=== PATIENT | female | born 1955 | race Native Hawaiian/Other Pacific Islander ===

== ENCOUNTER 2016-11-12 08:56 | Emergency (ER) | payer BC ==
[2016-11-12] MEDS ORDERED: MORPHINE SULFATE 4 MG/ML SYRINGE IV STA (09:12)
[2016-11-12] MEDS ORDERED: ONDANSETRON 4 MG/2 ML VIAL IVP STA (09:12)
[2016-11-12] MEDS ORDERED: SODIUM CHLORIDE 0.9% 1,000 ML IV STA (09:12)
--- NOTE | 2016-11-12 09:17 | ED ---
Abdominal Pain HPI - General Chief Complaint: Abdominal Pain Stated Complaint: ABDOMINAL PAIN Time Seen by Provider: 11/12/16 09:08 Source: patient, RN notes reviewed Mode of arrival: ambulatory Limitations: no limitations - History of Present Illness Initial Comments: 60-year-old female presents emergency Department chief complaint lower abdominal pain. Patient states pain started yesterday has not resolved. Patient states that his lower abdomen and suprapubic region. Patient states that she had nausea vomiting yesterday still nauseated today. Patient was seen at [facility] a urinalysis which showed hematuria. She has no history kidney stones. States the pain is slightly radiating to her side were primary just lower abdomen. Patient has had prior total hysterectomy, appendectomy and cholecystectomy. Patient had a history of uterine cancer. Patient denies any fever, chills, diarrhea or constipation. She does complain of mild urgency to urinate but no dysuria. - Related Data Previous Rx's Medication Instructions Recorded Ciprofloxacin HCl [Cipro] 500 mg PO Q12HR #20 tablet 11/12/16 Hydrocodone/Acetaminophen [[place] 1 tab PO Q6HR PRN #20 tab 11/12/16 5-325] Ondansetron Odt [Zofran Odt] 4 mg PO Q8HR PRN #10 tab 11/12/16 metroNIDAZOLE [Flagyl] 500 mg PO TID #30 tab 11/12/16 Allergies Allergy/AdvReac Type Severity Reaction Status Date / Time No Known Allergies Allergy Verified 11/12/16 09:04 Review of Systems ROS Statement: Those systems with pertinent positive or pertinent negative responses have been documented in the HPI. ROS Other: All systems not noted in ROS Statement are negative. Past Medical History Past Medical History: Diabetes Mellitus, Hyperlipidemia, Hypertension, Thyroid Disorder History of Any Multi-Drug Resistant Organisms: None Reported Past Surgical History: Cholecystectomy, Hysterectomy Additional Past Surgical History / Comment(s): uterine cancer Past Psychological History: No Psychological Hx Reported Smoking Status: Never smoker Past Alcohol Use History: None Reported Past Drug Use History: None Reported General Exam Limitations: no limitations General appearance: alert, in no apparent distress ENT exam: Present: normal exam, mucous membranes moist Neck exam: Present: normal inspection, full ROM. Absent: tenderness, meningismus, lymphadenopathy Respiratory exam: Present: normal lung sounds bilaterally. Absent: respiratory distress, wheezes, rales, rhonchi, stridor Cardiovascular Exam: Present: regular rate, normal rhythm, normal heart sounds. Absent: systolic murmur, diastolic murmur, rubs, gallop, clicks GI/Abdominal exam: Present: soft, tenderness (Moderate lower abdominal tenderness), normal bowel sounds. Absent: distended, guarding, rebound, rigid Back exam: Absent: CVA tenderness (R), CVA tenderness (L) Neurological exam: Present: alert, oriented X3, CN II-XII intact Skin exam: Present: warm, dry, intact, normal color. Absent: rash Course Vital Signs 11/12/16 11/12/16 09:01 10:11 Temperature 98.5 F Pulse Rate 80 89 Respiratory 18 17 Rate Blood Pressure 172/92 134/71 O2 Sat by Pulse 100 100 Oximetry Medical Decision Making - Medical Decision Making 60-year-old female presented emergency department for lower abdominal pain. Patient CT does show diverticulitis of the sigmoid colon with no evidence of perforation or abscess. Patient states she does feel improved at this time. Patient's labwork reveals mild leukocytosis 15. Patient was offered admission to the hospital states that she would rather try oral antibiotics at home. We did discuss return parameters wrist versus benefits. Patient will follow-up on Monday with her primary care physician. - Lab Data Result diagrams: 11/12/16 09:30 11/12/16 09:30 Lab Results 11/12/16 11/12/16 11/12/16 Range/Units 09:30 09:30 10:08 WBC 15.0 H (3.8-10.6) k/uL RBC 5.02 (3.80-5.40) m/uL Hgb 14.7 (11.4-16.0) gm/dL Hct 44.2 (34.0-46.0) % MCV 88.1 (80.0-100.0) fL MCH 29.2 (25.0-35.0) pg MCHC 33.2 (31.0-37.0) g/dL RDW 13.2 (11.5-15.5) % Plt Count 311 (150-450) k/uL Neutrophils % 78 % Lymphocytes % 14 % Monocytes % 4 % Eosinophils % 2 % Basophils % 1 % Neutrophils # 11.7 H (1.3-7.7) k/uL Lymphocytes # 2.1 (1.0-4.8) k/uL Monocytes # 0.6 (0-1.0) k/uL Eosinophils # 0.3 (0-0.7) k/uL Basophils # 0.1 (0-0.2) k/uL Sodium 138 (137-145) mmol/L Potassium 4.9 (3.5-5.1) mmol/L Chloride 103 (98-107) mmol/L Carbon Dioxide 23 (22-30) mmol/L Anion Gap 12 mmol/L BUN 13 (7-17) mg/dL Creatinine 0.62 (0.52-1.04) mg/dL Est GFR (MDRD) Af Amer >60 (>60 ml/min/1.73 sqM) Est GFR (MDRD) Non-Af >60 (>60 ml/min/1.73 sqM) Glucose 131 H (74-99) mg/dL Calcium 9.5 (8.4-10.2) mg/dL Total Bilirubin 0.7 (0.2-1.3) mg/dL AST 22 (14-36) U/L ALT 33 (9-52) U/L Alkaline Phosphatase 87 (38-126) U/L Total Protein 7.9 (6.3-8.2) g/dL Albumin 4.4 (3.5-5.0) g/dL Amylase 36 (30-110) U/L Lipase 76 (23-300) U/L Urine Color Yellow Urine Appearance Clear (Clear) Urine pH 5.5 (5.0-8.0) Ur Specific [place] 1.012 (1.001-1.035) Urine Protein Trace H (Negative) Urine Glucose (UA) 3+ H (Negative) Urine Ketones Trace H (Negative) Urine Blood Trace H (Negative) Urine Nitrite Negative (Negative) Urine Bilirubin Negative (Negative) Urine Urobilinogen <2.0 (<2.0) mg/dL Ur Leukocyte Esterase Negative (Negative) Urine RBC <1 (0-5) /hpf Urine WBC 1 (0-5) /hpf Ur Squamous Epith Cells <1 (0-4) /hpf Disposition Clinical Impression: Acute diverticulitis Disposition: HOME SELF-CARE Condition: Stable Instructions: Diverticulitis (ED), Diverticulitis Diet (ED) Additional Instructions: Please return to the Emergency Department if symptoms worsen or any other concerns. Prescriptions: Ciprofloxacin HCl [Cipro] 500 mg PO Q12HR #20 tablet Hydrocodone/Acetaminophen [[place] 5-325] 1 tab PO Q6HR PRN #20 tab PRN Reason: Pain metroNIDAZOLE [Flagyl] 500 mg PO TID #30 tab Ondansetron Odt [Zofran Odt] 4 mg PO Q8HR PRN #10 tab PRN Reason: Nausea Referrals: Denia Monson MD [Primary Care Provider] - 1-2 days Time of Disposition: 10:42
[2016-11-12 09:43] LABS: Basophils # (A) 0.1 k/uL (0-0.2); Basophils % (A) 1 %; CH 28.9; Eosinophils # (A) 0.3 k/uL (0-0.7); Eosinophils % (A) 2 %; HCT 44.2 % (34.0-46.0); HDW 2.44; HGB 14.7 gm/dL (11.4-16.0); Luc # (Auto) 0.26; Luc % (Auto) 2; Lymphocytes # (A) 2.1 k/uL (1.0-4.8); Lymphocytes % (A) 14 %; MCH 29.2 pg (25.0-35.0); MCHC 33.2 g/dL (31.0-37.0); MCV 88.1 fL (80.0-100.0); Mean Platelet Volume 6.6; Monocytes # (A) 0.6 k/uL (0-1.0); Monocytes % (A) 4 %; Neutrophils # (A) 11.7 k/uL (1.3-7.7); Neutrophils % (A) 78 %; RBC 5.02 m/uL (3.80-5.40); RDW 13.2 % (11.5-15.5); WBC (Perox) 14.79
[2016-11-12 09:53] LABS: ALT 33 U/L (9-52); AST 22 U/L (14-36); Alkaline Phosphatase 87 U/L (38-126); Amylase 36 U/L (30-110); Anion Gap 12 mmol/L; Blood Urea Nitrogen 13 mg/dL (7-17); Calcium 9.5 mg/dL (8.4-10.2); Carbon Dioxide 23 mmol/L (22-30); Chloride 103 mmol/L (98-107); Glucose 131 mg/dL (74-99); Non-African American GFR(MDRD) >60 (>60 ml/min/1.73 sqM); Potassium 4.9 mmol/L (3.5-5.1); Sodium 138 mmol/L (137-145); Total Bilirubin 0.7 mg/dL (0.2-1.3); Total Protein 7.9 g/dL (6.3-8.2)
[2016-11-12 10:12] VITALS: BP 134/71; PULSE 89; RESP 17
--- NOTE | 2016-11-12 10:25 | CT ---
EXAMINATION TYPE: CT abdomen pelvis wo con DATE OF EXAM: 11/12/2016 COMPARISON: None. HISTORY: pelvic pain with hematuria CT DLP: 610.4 mGycm Automated exposure control for dose reduction was used. FINDINGS: There is mild dependent atelectasis in the dependent portions of the lungs. There is no ple ural or pericardial fluid. The heart is not enlarged. Within the abdomen, the gallbladder is been removed. The liver is prominent measuring 19 cm. The live r is fatty infiltrated. The spleen is normal. Both adrenal glands are normal. There is a simple appearing 4.3 cm cyst involving the upper pole of the left kidney. There are parape lvic cysts on the right. Limited views of the pancreas are unremarkable. There is no significant retroperitoneal, iliac or inguinal adenopathy. The uterus and ovaries are not visualized. The bladder is unremarkable. There is extensive diverticular change throughout the sigmoid colon. There is pericolonic inflammatio n in the mid sigmoid. There is no drainable abscess. There is no definite perforation. The appendix i s normal. Small bowel loops are of normal caliber. There is no free fluid and no free air. There is some sclerosis of the left sacroiliac joint. There is degenerative disc disease and mild fac et arthropathy as well as minimal hypertrophic spondylosis within the dorsal spine. IMPRESSION: 1. DIVERTICULITIS. 2. HEPATOMEGALY AND FATTY INFILTRATION OF THE LIVER. #3 SIMPLE APPEARING LEFT RENAL CYST. 3. DEGENERATIVE CHANGE IN THE SPINE AND RIGHT SI JOINT.
[2016-11-12 10:27] LABS: Appearance,Urine Clear (Clear); Bilirubin,Urine Negative (Negative); Glucose,Urine (UA) 3+ (Negative); Ketones,Urine Trace (Negative); Leukocyte Esterase,Urine Negative (Negative); Nitrite,Urine Negative (Negative); PH, Urine 5.5 (5.0-8.0); Particle Count 932; Protein,Urine Trace (Negative); RBC,Urine <1 /hpf (0-5); Specific Gravity,Urine 1.012 (1.001-1.035); Squamous Epithelial Cell,Urine <1 /hpf (0-4); UA Billing (MACRO vs. MICRO) MICRO; Urobilinogen,Urine <2.0 mg/dL (<2.0); WBC,Urine 1 /hpf (0-5)
[2016-11-12] MEDS ORDERED: CIPROFLOXACIN HCL 500 MG TAB PO STA (10:42)
[2016-11-12] MEDS ORDERED: metroNIDAZOLE 500 MG TAB PO STA (10:42)
[2016-11-12 10:59] VITALS: TEMP 98.6
== END 2016-11-12 10:58 | disposition home or self-care (01) ==
LOC: EC 08:56
DX: K57.32 Diverticulitis of large intestine without perforation or abscess without bleeding (principal); R11.2 Nausea with vomiting, unspecified; Z90.49 Acquired absence of other specified parts of digestive tract
CPT/HCPCS: 99284; 96374; 96375; 96361; 36415; 80053; 82150; 83690; 85025; 81001; 74176; J2270; J2405

== ENCOUNTER → 2018-08-31 | Outpatient (CLI) | payer BC ==
--- NOTE | 2018-09-04 11:24 | MM ---
Reason for exam: screening (asymptomatic). Last mammogram was performed 2 years and 8 months ago. History: Patient is postmenopausal and has history of endometrial cancer at age 51. Family history of breast cancer in paternal cousin. Physical Findings: A clinical breast exam by your physician is recommended on an annual basis and results should be correlated with mammographic findings. MG Screening Mammo w CAD Bilateral CC and MLO view(s) were taken. Prior study comparison: January 01, 2016, bilateral MG screening mammo w CAD. October 17, 2012, bilateral digital screening mammo w/CAD. There are scattered fibroglandular densities. There are benign appearing round calcifications bilaterally. There is no discrete abnormality. ASSESSMENT: Benign, BI-RAD 2 RECOMMENDATION: Routine screening mammogram of both breasts in 1 year.
== END | disposition home or self-care (01) ==
LOC: RADMAMWWP 09:53
PROVIDERS: ATTEND Internal Medicine
DX: Z12.31 Encounter for screening mammogram for malignant neoplasm of breast (principal)
CPT/HCPCS: 77067

== ENCOUNTER 2019-06-22 13:37 | Inpatient (IN) | payer BC, OTHER ==
[2019-06-22] MEDS ORDERED: ASPIRIN 81 MG PO STA (14:01)
--- NOTE | 2019-06-22 14:12 | ED ---
Chest Pain HPI - General Chief Complaint: Chest Pain Stated Complaint: Chest pain Time Seen by Provider: 06/22/19 13:50 Source: EMS Mode of arrival: EMS Limitations: no limitations - History of Present Illness Initial Comments: The patient is a 63-year-old female past history of hypertension, hyperlipidemia and diabetes who presents to the emergency room with reported chest pain. She reports that the pain started last night while she was grocery shopping. States that she was pushing a cart when she had sudden poking sensation in her chest. She graded it as an 8 out of 10. Denies any provocative factors. No associated nausea, vomiting or diaphoresis. No history of previous cardiac disease. States that she went home with the hope that the symptoms would go away. When she woke this morning she still had pain in her chest and therefore went to the [place] urgent care. Staff at the facility noted that she was in SVT with a rate of 187. They called EMS who performed vagal maneuver and converted the patient. She does arrive and state that her symptoms are completely gone at this time. She does report that she has had intermittent chest pain over the past several months. Her primary care referred her to go see Dr. Adkins as she does have significant risk factors for cardiac disease and has a large family history of cardiac disease. States her sister just had open-heart surgery and her brother has heart disease. Reports that she has not gone to see him as her chest pain was improving. Denies ripping or tearing sensation to her back. Denies cough or hemoptysis. No abdominal pain. Denies any numbness, tingling or weakness in her tremors. No syncope or presyncope. There are no other alleviating, precipitating or modifying factors - Related Data Home Medications Medication Instructions Recorded Confirmed Aspirin EC [Ecotrin Low Dose] 81 mg PO DAILY 06/22/19 06/22/19 Dapagliflozin Propanediol [Farxiga] 5 mg PO DAILY 06/22/19 06/22/19 Krill Oil 500 mg PO DAILY 06/22/19 06/22/19 Levothyroxine Sodium [Synthroid] 50 mcg PO DAILY 06/22/19 06/22/19 Lisinopril [Zestril] 10 mg PO DAILY 06/22/19 06/22/19 SUMAtriptan SUCCINATE [Imitrex] 100 mg PO DAILY PRN 06/22/19 06/22/19 Simvastatin [Zocor] 40 mg PO HS 06/22/19 06/22/19 sitaGLIPtin PHOS/metFORMIN HCL 1 tab PO BID 06/22/19 06/22/19 [Janumet 50-1,000 mg Tablet] Previous Rx's Medication Instructions Recorded Metoprolol Tartrate [Lopressor] 25 mg PO DAILY #30 tab 06/24/19 Allergies Allergy/AdvReac Type Severity Reaction Status Date / Time No Known Allergies Allergy Verified 06/22/19 14:56 Review of Systems ROS Statement: Those systems with pertinent positive or pertinent negative responses have been documented in the HPI. ROS Other: All systems not noted in ROS Statement are negative. EKG Findings - EKG Comments: EKG Findings:: EKG demonstrates a normal sinus rhythm with ventricular rate of 93. ME interval 162. QRS 98. QTC of 465. Q waves in leads 3 and [address]VF. No acute ST segment elevations or depressions Past Medical History Past Medical History: Diabetes Mellitus, Hyperlipidemia, Hypertension, Thyroid Disorder History of Any Multi-Drug Resistant Organisms: None Reported Past Surgical History: Cholecystectomy, Hysterectomy Additional Past Surgical History / Comment(s): uterine cancer Past Psychological History: No Psychological Hx Reported Smoking Status: Never smoker Past Alcohol Use History: None Reported Past Drug Use History: None Reported - Past Family History Mother Family Medical History: Coronary Artery Disease (CAD), Deep Vein Thrombosis (DVT) General Exam Limitations: no limitations General appearance: alert, in no apparent distress Head exam: Present: atraumatic, normocephalic, normal inspection Eye exam: Present: normal appearance, PERRL, EOMI. Absent: scleral icterus, conjunctival injection, periorbital swelling ENT exam: Present: normal exam, mucous membranes moist Neck exam: Present: normal inspection. Absent: tenderness, meningismus, lymphadenopathy Respiratory exam: Present: normal lung sounds bilaterally. Absent: respiratory distress, wheezes, rales, rhonchi, stridor Cardiovascular Exam: Present: regular rate, normal rhythm, normal heart sounds. Absent: systolic murmur, diastolic murmur, rubs, gallop, clicks GI/Abdominal exam: Present: soft, normal bowel sounds. Absent: distended, tenderness, guarding, rebound, rigid Extremities exam: Present: normal inspection, full ROM, normal capillary refill. Absent: tenderness, pedal edema, joint swelling, calf tenderness Back exam: Present: normal inspection Neurological exam: Present: alert, oriented X3, CN II-XII intact Psychiatric exam: Present: normal affect, normal mood Skin exam: Present: warm, dry, intact, normal color. 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 A thorough history and physical exam was performed. The patient has a 12-lead EKG performed which demonstrates normal sinus rhythm with Q waves in inferior leads. I recommended laboratory studies. I continued cardiac monitoring. Laboratory studies were conducted. D-dimer is 0.62 which is adjusted and age appropriate. CMP shows a creatinine of 0.48. Troponin is negative. Chest x-ray was performed which demonstrates no acute cardio pulmonary process. I discussed the results with the patient. I did recommend hospitalization for the patient's new onset SVT as well as her multiple comorbid conditions which puts her at a higher risk for coronary disease. The patient did agree to this. I did discuss the case with Dr. Mcdaniel who accepted admission for the patient. The patient was transferred to the floor in stable condition Disposition Clinical Impression: Chest pain, SVT (supraventricular tachycardia) Disposition: ADMITTED IP TO THIS HOSP Condition: Stable Is patient prescribed a controlled substance at d/c from ED?: No Decision to Admit Reason: Admit from EC Decision Date: 06/22/19 Decision Time: 14:58
[2019-06-22 14:30] LABS: Basophils # (A) 0.1 k/uL (0-0.2); Basophils % (A) 1 %; Eosinophils # (A) 0.3 k/uL (0-0.7); Eosinophils % (A) 3 %; HCT 41.8 % (34.0-46.0); HGB 13.7 gm/dL (11.4-16.0); Lymphocytes # (A) 2.7 k/uL (1.0-4.8); Lymphocytes % (A) 32 %; MCH 28.6 pg (25.0-35.0); MCHC 32.8 g/dL (31.0-37.0); MCV 87.1 fL (80.0-100.0); Mean Platelet Volume 7.6; Monocytes # (A) 0.4 k/uL (0-1.0); Monocytes % (A) 5 %; Neutrophils # (A) 4.9 k/uL (1.3-7.7); Neutrophils % (A) 58 %; Platelet Count 306 k/uL (150-450); RBC 4.79 m/uL (3.80-5.40); RDW 12.9 % (11.5-15.5); WBC 8.6 k/uL (3.8-10.6)
[2019-06-22 14:32] LABS: ALT 43 U/L (4-34); AST 57 U/L (14-36); African American GFR (CKD) >90 (>60 ml/min/1.73 sqM); Albumin 4.3 g/dL (3.5-5.0); Alkaline Phosphatase 70 U/L (38-126); Anion Gap 8 mmol/L; Blood Urea Nitrogen 12 mg/dL (7-17); Calcium 9.5 mg/dL (8.4-10.2); Carbon Dioxide 25 mmol/L (22-30); Chloride 106 mmol/L (98-107); Glucose 156 mg/dL (74-99); Magnesium 1.9 mg/dL (1.6-2.3); Non-African American GFR(CKD) >90 (>60 ml/min/1.73 sqM); Potassium 4.1 mmol/L (3.5-5.1); Sodium 139 mmol/L (137-145); Total Bilirubin 0.3 mg/dL (0.2-1.3); Total Protein 7.7 g/dL (6.3-8.2)
[2019-06-22 14:39] LABS: Partial Thromboplastin Time 22.4 sec (22.0-30.0); Prothrombin Time 10.3 sec (9.0-12.0)
--- NOTE | 2019-06-22 14:41 | XR ---
EXAMINATION TYPE: XR chest 2V DATE OF EXAM: 06/22/2019 COMPARISON: 12/13/2009 HISTORY: Chest pain TECHNIQUE: Frontal and lateral views of the chest are obtained. FINDINGS: There is no focal air space opacity, pleural effusion, or pneumothorax seen. The cardiac silhouette size is within normal limits. The osseous structures are intact. IMPRESSION: No acute cardiopulmonary process.
[2019-06-22 14:43] LABS: D-Dimer 0.62 mg/L FEU (<0.60)
[2019-06-22] MEDS ORDERED: NALOXONE 0.4 MG/ML 1 ML VIAL IV PRN (14:59)
[2019-06-22 15:22] LABS: Glucose,Whole Blood 139 mg/dL (75-99)
[2019-06-22] MEDS: INSULIN ASPART (NovoLOG) 100 UNIT/ML VIAL SQ SCH ×2 (17:44→20:36)
[2019-06-22] MEDS: ATORVASTATIN 20 MG TAB PO SCH (20:18)
[2019-06-22 20:33] LABS: Glucose,Whole Blood 145 mg/dL (75-99)
[2019-06-22] MEDS ORDERED: HEPARIN SODIUM,PORCINE 5,000 UNIT/ML 1 ML VIAL IV ONE (21:22)
[2019-06-22] MEDS: HEPARIN SOD,PORK IN 0.45% NACL 25,000 UNIT in 0.45% NACL 1 250ML.BAG IV SCH (21:47)
--- NOTE | 2019-06-22 23:07 | P.HPIM ---
History of Present Illness H&P Date: 06/22/19 Chief Complaint: chest pain patient is a 63-year-old female with a known history of hypertension, diabetes type [id number], hypothyroidism, hyperlipidemia and history of uterine cancercame to ER with complaints of chest pain. Patient states that her chest pain startedwhile she was grocery shopping. Pain is mainly in the left retrosternaland radiating to theright shoulder. Lasted about half an hour Stabbing like sensation associated with dizzinessand lightheadedness. No nausea vomiting or sweating. Patient went homewith the hope thatsymptoms would go away. When she woke up in the morning she still had chest pain and went [facility] urgent care facility. Patient was found to be in SVTand advised her to go to ER. EMS performed vagal maneuver and converted to sinus rhythm. Currently heart rate is controlled. denied any complaints of shortness of breath. No abdominal pain. Denied any recent illnesses or sick contacts. no syncope She does report that she has had intermittent chest pain over the past several months. Her primary care referred her to go see Dr. Adkins as she does have significant risk factors for cardiac disease and has a large family history of cardiac disease. States her sister just had open-heart surgery and her brother has heart disease. Reports that she has not gone to see him as her chest pain was improving. EKG showednormal sinus rhythm. troponin, 0.012,0.164 chest x-ray showed no acute cardiopulmonary process. D-dimer level is 0.62 Review of Systems Constitutional: Patient denies any fever or chills . No generalized weakness or weight loss. Abdomen: Patient denied nausea vomiting and diarrhea and abdominal pain. Cardiovascular: Patient complaints of chest pain . No short of breath no palpitations.oes have headache and dizziness. No leg swelling. Respiratory: patient denied any cough is from production. No shortness of breath Neurologic: Patient denied any numbness or tingling headache. Musculoskeletal: Patient denies any complaints of joint swelling or deformity. Skin: Negative Psychiatric: Negative Endocrine: No heat or cold intolerance. No recent weight gain. Genitourinary: No dysuria or hematuria. All other 14 point ROS negative except the above Past Medical History Past Medical History: Diabetes Mellitus, Hyperlipidemia, Hypertension, Thyroid Disorder History of Any Multi-Drug Resistant Organisms: None Reported Past Surgical History: Cholecystectomy, Hysterectomy Additional Past Surgical History / Comment(s): uterine cancer Past Psychological History: No Psychological Hx Reported Smoking Status: Never smoker Past Alcohol Use History: None Reported Past Drug Use History: None Reported - Past Family History Mother Family Medical History: Coronary Artery Disease (CAD), Deep Vein Thrombosis (DVT) Medications and Allergies Home Medications Medication Instructions Recorded Confirmed Type Aspirin EC [Ecotrin Low Dose] 81 mg PO DAILY 06/22/19 06/22/19 History Dapagliflozin Propanediol [Farxiga] 5 mg PO DAILY 06/22/19 06/22/19 History Krill Oil 500 mg PO DAILY 06/22/19 06/22/19 History Levothyroxine Sodium [Synthroid] 50 mcg PO DAILY 06/22/19 06/22/19 History Lisinopril [Zestril] 10 mg PO DAILY 06/22/19 06/22/19 History SUMAtriptan SUCCINATE [Imitrex] 100 mg PO DAILY PRN 06/22/19 06/22/19 History Simvastatin [Zocor] 40 mg PO HS 06/22/19 06/22/19 History sitaGLIPtin PHOS/metFORMIN HCL 1 tab PO BID 06/22/19 06/22/19 History [Janumet 50-1,000 mg Tablet] Allergies Allergy/AdvReac Type Severity Reaction Status Date / Time No Known Allergies Allergy Verified 06/22/19 14:56 Physical Exam Vitals: Vital Signs Temp Pulse Pulse Resp BP BP Pulse Ox 06/22/19 20:19 97.5 F L 78 16 119/77 98 06/22/19 17:24 97.8 F 73 16 122/67 97 06/22/19 17:04 85 18 109/68 98 06/22/19 15:00 96 18 110/65 98 06/22/19 14:00 98 18 119/78 96 06/22/19 13:54 97 06/22/19 13:50 98.8 F 101 H 18 119/78 98 06/22/19 13:40 97 17 119/78 97 Intake and Output 06/22/19 06/22/19 06/22/19 06:59 14:59 22:59 Other: Voiding Method Toilet Weight 70.307 kg 70.307 kg PHYSICAL EXAMINATION: Patient is lying in the bed comfortably, no acute distress, awake alert and oriented.. HEENT: Normocephalic. Neck is supple. Pupils reactive. Nostrils clear. Oral cavity is moist. Ears reveal no drainage. Neck reveals no JVD, carotid bruits, or thyromegaly. CHEST EXAMINATION: Trachea is central. Symmetrical expansion. Lung romero clear to auscultation and percussion. CARDIAC: Normal S1, S2 with no gallops. No murmurs ABDOMEN: Soft. Bowel sounds normal. No organomegaly. No abdominal bruits. Extremities: reveal no edema. No clubbing or cyanosis Neurologically awake, alert, oriented x3 with well-coordinated movements. No focal deficits noted Skin: No rash or skin lesions. Psychiatric: Coperative. Nonsuicidal Musculoskeletal: No joint swelling or deformity. Normal range of motion. Results CBC & Chem 7: 06/22/19 14:07 06/22/19 14:07 Labs: Abnormal Lab Results - Last 24 Hours (Table) 06/22/19 06/22/19 06/22/19 Range/Units 14:07 14:07 15:20 D-Dimer 0.62 H (<0.60) mg/L FEU Creatinine 0.48 L (0.52-1.04) mg/dL Glucose 156 H (74-99) mg/dL POC Glucose (mg/dL) 139 H (75-99) mg/dL AST 57 H (14-36) U/L ALT 43 H (4-34) U/L Troponin I (0.000-0.034) ng/mL 06/22/19 06/22/19 Range/Units 19:46 20:32 D-Dimer (<0.60) mg/L FEU Creatinine (0.52-1.04) mg/dL Glucose (74-99) mg/dL POC Glucose (mg/dL) 145 H (75-99) mg/dL AST (14-36) U/L ALT (4-34) U/L Troponin I 0.164 H* (0.000-0.034) ng/mL Thrombosis Risk Factor Assmnt - DVT/VTE Prophylaxis DVT/VTE Prophylaxis: Pharmacologic Prophylaxis ordered - Choose All That Apply Other Risk Factors: Yes Each Risk Factor Represents 2 Points: Age 61-74 years Thrombosis Risk Factor Assessment Total Risk Factor Score: 2 Thrombosis Risk Factor Assessment Level: Low Risk Assessment and Plan Assessment: acute non-ST elevated MIwith elevated troponin level. chest pain SVT status post vagal manual. Converted to sinus rhythm now. Significant family history of coronary artery disease Diabetes type [id number] Hypertension Hyperlipidemia hypothyroidism History of uterine cancer plan: Patient will be continued ontelemetry monitoring. Started on heparin drip. Continue with serial EKG and troponins. Cardiology was consulted.continue with aspirin. follow up closely and further recommendations based on the clinical course. Time with Patient: Greater than 30
[2019-06-23 03:44] LABS: Basophils # (A) 0.1 k/uL (0-0.2); Basophils % (A) 1 %; Eosinophils # (A) 0.4 k/uL (0-0.7); Eosinophils % (A) 5 %; HCT 38.9 % (34.0-46.0); HGB 12.7 gm/dL (11.4-16.0); Lymphocytes # (A) 3.9 k/uL (1.0-4.8); Lymphocytes % (A) 50 %; MCH 28.7 pg (25.0-35.0); MCHC 32.7 g/dL (31.0-37.0); MCV 87.7 fL (80.0-100.0); Mean Platelet Volume 8.3; Monocytes # (A) 0.3 k/uL (0-1.0); Monocytes % (A) 4 %; Neutrophils % (A) 38 %; Platelet Count 291 k/uL (150-450); RBC 4.44 m/uL (3.80-5.40); RDW 13.2 % (11.5-15.5); WBC 7.8 k/uL (3.8-10.6)
[2019-06-23 03:52] LABS: African American GFR (CKD) >90 (>60 ml/min/1.73 sqM); Anion Gap 6 mmol/L; Blood Urea Nitrogen 12 mg/dL (7-17); Calcium 9.2 mg/dL (8.4-10.2); Carbon Dioxide 28 mmol/L (22-30); Chloride 104 mmol/L (98-107); Glucose 146 mg/dL (74-99); Non-African American GFR(CKD) >90 (>60 ml/min/1.73 sqM); Potassium 4.2 mmol/L (3.5-5.1); Sodium 138 mmol/L (137-145)
[2019-06-23 06:21] LABS: Glucose,Whole Blood 166 mg/dL (75-99)
[2019-06-23] MEDS: LEVOTHYROXINE 50 MCG TAB PO SCH (06:21)
[2019-06-23] MEDS: INSULIN ASPART (NovoLOG) 100 UNIT/ML VIAL SQ SCH ×4 (06:23→21:14)
[2019-06-23] MEDS: ASPIRIN 81 MG PO SCH (08:44)
[2019-06-23] MEDS: LISINOPRIL 10 MG TAB PO SCH (08:44)
[2019-06-23] MEDS: HEPARIN SODIUM,PORCINE 5,000 UNIT/ML 1 ML VIAL IV PRN ×2 (09:51→16:39)
--- NOTE | 2019-06-23 09:52 | P.CRDCN ---
History of Present Illness Consult date: 06/23/19 Requesting physician: Rob Mcdaniel Reason for Consult (text): SVT Consult reason: chest pain Chief complaint: Chest pain History of present illness: This is a pleasant 63-year-old female patient with history of hypertension, diabetes, hyperlipidemia, nonsmoker, strong family history of premature coronary artery disease in her brother who with myocardial infarction. She states that she was in the store yesterday pushing a cart when she developed chest disc omfort which she described as a poking sensation, she also felt her heart racing fast, she states that her pain was 9 out of 10 on a pain scale. She denies any associated nausea vomiting or diaphoresis, no shortness of breath. Patient states that she went home hoping the symptoms would go away, when she woke up in the morning she still had symptoms in her chest, went to [place] urgent care. It was noticed there that the patient was in SVT with a heart rate of 180, EMS was called who performed vagal maneuver, patient converted to normal sinus rhythm and has remained in a normal sinus rhythm at this time. Patient denies seeing a muffler tender in the office, she was recommended by her primary care to set up an appointment in the office. Her chest x-ray on presentation here did not reveal any acute cardiopulmonary process. EKG this morning shows a normal sinus rhythm, no acute changes. Blood pressure 128/70 with a heart rate in the 70s, 96% on room air. White blood cell count 7.8, hemoglobin 12.7, platelet count 291. D-dimer 0.6. Sodium 138, potassium 4.2, BUN 12, creatinine 0.4. AST 57, ALT 43, initial troponin 0.012, subsequent troponin 0.164 and 0.062. TSH, 2.5 this morning. At the time of my examination this morning, patient is quite comfortable, she denies any chest discomfort, no palpitations and her breathing is stable. Past Medical History Past Medical History: Diabetes Mellitus, Hyperlipidemia, Hypertension, Thyroid Disorder History of Any Multi-Drug Resistant Organisms: None Reported Past Surgical History: Cholecystectomy, Hysterectomy Additional Past Surgical History / Comment(s): uterine cancer Past Psychological History: No Psychological Hx Reported Smoking Status: Never smoker Past Alcohol Use History: None Reported Past Drug Use History: None Reported - Past Family History Mother Family Medical History: Coronary Artery Disease (CAD), Deep Vein Thrombosis (DVT) Medications and Allergies Home Medications Medication Instructions Recorded Confirmed Type Aspirin EC [Ecotrin Low Dose] 81 mg PO DAILY 06/22/19 06/22/19 History Dapagliflozin Propanediol [Farxiga] 5 mg PO DAILY 06/22/19 06/22/19 History Krill Oil 500 mg PO DAILY 06/22/19 06/22/19 History Levothyroxine Sodium [Synthroid] 50 mcg PO DAILY 06/22/19 06/22/19 History Lisinopril [Zestril] 10 mg PO DAILY 06/22/19 06/22/19 History SUMAtriptan SUCCINATE [Imitrex] 100 mg PO DAILY PRN 06/22/19 06/22/19 History Simvastatin [Zocor] 40 mg PO HS 06/22/19 06/22/19 History sitaGLIPtin PHOS/metFORMIN HCL 1 tab PO BID 06/22/19 06/22/19 History [Janumet 50-1,000 mg Tablet] Allergies Allergy/AdvReac Type Severity Reaction Status Date / Time No Known Allergies Allergy Verified 06/22/19 14:56 Physical Exam Vitals: Vital Signs Temp Pulse Pulse Resp BP BP Pulse Ox 06/23/19 04:54 97.8 F 74 16 128/77 96 06/23/19 00:00 87 16 131/73 98 06/22/19 20:19 97.5 F L 78 16 119/77 98 06/22/19 17:24 97.8 F 73 16 122/67 97 06/22/19 17:04 85 18 109/68 98 06/22/19 15:00 96 18 110/65 98 06/22/19 14:00 98 18 119/78 96 06/22/19 13:54 97 06/22/19 13:50 98.8 F 101 H 18 119/78 98 06/22/19 13:40 97 17 119/78 97 Intake and Output 06/22/19 06/23/19 06/23/19 22:59 06:59 14:59 Output Total 3 Balance -3 Output: Urine 3 Other: Voiding Method Toilet # Voids 1 Weight 70.307 kg 83.6 kg PHYSICAL EXAMINATION: GENERAL: 63-year-old female in no acute distress at the time of my examination HEENT: Head is atraumatic, normocephalic. Pupils equal, round. Sclera anicteric. Conjunctiva are clear. Mucous membranes of the mouth are moist. Neck is supple. There is no elevated jugular venous pressure no carotid bruit is heard. HEART EXAMINATION: Heart S1, S2 normal. No murmur or gallop heard. CHEST EXAMINATION: Lungs are clear to auscultation and precussion. No chest wall tenderness is noted on palpation or with deep breathing. ABDOMEN: Soft, nontender. Bowel sounds are heard. No organomegaly noted. EXTREMITIES: 2+ peripheral pulses with no evidence of peripheral edema and no calf tenderness noted. NEUROLOGIC patient is awake, alert and oriented 3 . . Results 06/23/19 03:26 06/23/19 03:17 Cardiac Enzymes 06/22/19 06/22/19 06/22/19 Range/Units 14:07 14:07 19:46 AST 57 H (14-36) U/L Troponin I <0.012 0.164 H* (0.000-0.034) ng/mL 06/23/19 Range/Units 03:17 AST (14-36) U/L Troponin I 0.062 H* (0.000-0.034) ng/mL Coagulation 06/22/19 06/23/19 06/23/19 Range/Units 14:07 03:17 09:03 PT 10.3 (9.0-12.0) sec APTT 22.4 31.2 H 30.0 (22.0-30.0) sec CBC 06/22/19 06/23/19 Range/Units 14:07 03:26 WBC 8.6 7.8 (3.8-10.6) k/uL RBC 4.79 4.44 (3.80-5.40) m/uL Hgb 13.7 12.7 (11.4-16.0) gm/dL Hct 41.8 38.9 (34.0-46.0) % Plt Count 306 291 (150-450) k/uL Comprehensive Metabolic Panel 06/22/19 06/23/19 Range/Units 14:07 03:17 Sodium 139 138 (137-145) mmol/L Potassium 4.1 4.2 (3.5-5.1) mmol/L Chloride 106 104 (98-107) mmol/L Carbon Dioxide 25 28 (22-30) mmol/L BUN 12 12 (7-17) mg/dL Creatinine 0.48 L 0.48 L (0.52-1.04) mg/dL Glucose 156 H 146 H (74-99) mg/dL Calcium 9.5 9.2 (8.4-10.2) mg/dL AST 57 H (14-36) U/L ALT 43 H (4-34) U/L Alkaline Phosphatase 70 (38-126) U/L Total Protein 7.7 (6.3-8.2) g/dL Albumin 4.3 (3.5-5.0) g/dL Current Medications Generic Name Dose Route Start Last Admin Trade Name Freq PRN Reason Stop Dose Admin Aspirin 81 mg 06/23/19 09:00 06/23/19 08:44 Aspirin PO 81 mg DAILY GUILLERMINA Administration Atorvastatin Calcium 20 mg 06/22/19 21:00 06/22/19 20:18 Lipitor PO 20 mg HS GUILLERMINA Administration Heparin Sodium (Porcine) 0 unit 06/22/19 21:22 Heparin IV PER PROTOCOL PRN Low PTT Protocol Heparin Sodium/Sodium Chloride 250 mls @ 8.437 mls/hr 06/22/19 21:30 06/22/19 21:47 25,000 unit/ Sodium Chloride IV 12 units/kg/hr .Q24H GUILLERMINA 8.437 mls/hr Administration Protocol 12 UNITS/KG/HR Insulin Aspart 0 unit 06/22/19 17:30 06/23/19 06:23 Novolog SQ Not Given A[facility]S [facility] Protocol Levothyroxine Sodium 50 mcg 06/23/19 06:30 06/23/19 06:21 Synthroid PO 50 mcg 0630 GUILLERMINA Administration Lisinopril 10 mg 06/23/19 09:00 06/23/19 08:44 Zestril PO 10 mg DAILY GUILLERMINA Administration Metoprolol Tartrate 25 mg 06/23/19 09:30 Lopressor PO DAILY GUILLERMINA Naloxone HCl 0.2 mg 06/22/19 14:59 Narcan IV Q2M PRN Opioid Reversal Intake and Output 06/22/19 06/23/19 06/23/19 22:59 06:59 14:59 Output Total 3 Balance -3 Output: Urine 3 Other: Voiding Method Toilet # Voids 1 Weight 70.307 kg 83.6 kg 06/23/19 03:26 06/23/19 03:17 EKG Interpretations (text) Initial EKG via EMS showed a supraventricular tachycardia, this morning the patient's EKG shows a normal sinus rhythm. Assessment and Plan Plan: Assessment and plan #1 chest discomfort with some atypical features for acute coronary syndrome, could be secondary to SVT. Troponins 0.01, 0.16, 0.06. #2 supraventricular tachycardia, converted to normal sinus rhythm by vagal #3 increased caffeine intake recently #4 diabetes #5 hypertension #6 hyperlipidemia #7 family history of premature coronary artery disease Plan We will obtain an echocardiogram with Doppler study. We will also start the patient on Lopressor, patient's abnormality in troponin could be secondary to supraventricular tachycardia, cannot completely rule out acute coronary syndrome. Patient has been recommended to undergo cardiac catheterization, the risks and the benefits were explained to the patient in detail. This will be performed tomorrow. Further recommendations will be based on those findings and patient's clinical course. DNP note has been reviewed, I agree with a documented findings and plan of care. Patient was seen and examined.
[2019-06-23] MEDS ORDERED: ATORVASTATIN 80 MG TAB PO STA (09:53)
[2019-06-23] MEDS ORDERED: ALPRAZolam 0.25 MG TAB PO PRN (09:53)
[2019-06-23] MEDS ORDERED: SODIUM CHLORIDE 0.9% 1,000 ML in EMPTY BAG 1 BAG IV ONE (09:53)
[2019-06-23] MEDS ORDERED: ASPIRIN 325 MG TAB PO STA (09:53)
[2019-06-23] MEDS ORDERED: ALPRAZolam 0.5 MG TAB PO PRN (09:53)
[2019-06-23] MEDS ORDERED: NITROGLYCERIN SL TABS 0.4 MG TAB SUBLINGUAL PRN (09:53)
[2019-06-23] MEDS: METOPROLOL TARTRATE 25 MG TAB PO SCH (09:55)
[2019-06-23 11:48] LABS: Glucose,Whole Blood 176 mg/dL (75-99)
[2019-06-23 16:54] LABS: Glucose,Whole Blood 172 mg/dL (75-99)
[2019-06-23 17:15] VITALS: RESP 16
[2019-06-23 20:28] LABS: Glucose,Whole Blood 164 mg/dL (75-99)
[2019-06-23] MEDS: ATORVASTATIN 20 MG TAB PO SCH (21:14)
[2019-06-23] MEDS: HEPARIN SOD,PORK IN 0.45% NACL 25,000 UNIT in 0.45% NACL 1 250ML.BAG IV SCH (21:15)
--- NOTE | 2019-06-23 22:53 | P.PN ---
Subjective Progress Note Date: 06/23/19 Principal diagnosis: Supraventricular tachycardia Chest pressure secondary to above patient is a 63-year-old female with a known history of hypertension, diabetes type [id number], hypothyroidism, hyperlipidemia and history of uterine cancercame to ER with complaints of chest pain. Patient states that her chest pain startedwhile she was grocery shopping. Pain is mainly in the left retro[place]ern[place] radiating to theright shoulder. Lasted about half an hour Stabbing like sensation associated with dizzinessand lightheadedness. No nausea vomiting or sweating. Patient went homewith the hope thatsymptoms would go away. When she woke up in the morning she still had chest pain and went tot urgent care facility. Patient was found to be in SVTand advised her to go to ER. EMS performed vagal maneuver and converted to sinus rhythm. Currently heart rate is controlled. denied any complaints of shortness of breath. No abdominal pain. Denied any recent illnesses or sick contacts. no syncope She does report that she has had intermittent chest pain over the past several months. Her primary care referred her to go see Dr. Adkins as she does have significant risk factors for cardiac disease and has a large family history of cardiac disease. States her sister just had open-heart surgery and her brother has heart disease. Reports that she has not gone to see him as her chest pain was improving. EKG showednormal sinus rhythm. troponin, 0.012,0.164 chest x-ray showed no acute cardiopulmonary process. D-dimer level is 0.62 06/23/2019 Patient denied any complaints of chest pain overnight. No complaints of shortness of breath. Troponin level came down to 0.062. Troponin elevation likely due to SVT. Due to history of multiple risk factors, cardiology is planning for catheterization tomorrow. Patient is being converted on aspirin. Added metoprolol and lisinopril. Cardiology is on board. Current medications reviewed. Objective - Vital Signs Vital signs: Vital Signs Temp 98.1 F 06/23/19: Pulse 71 06/23/19 21:26 Resp 16 06/23/19 21:26 BP 134/73 06/23/19 21:26 Pulse Ox 98 06/23/19 21:26 Intake & Output 06/23/19 06/23/19 06/24/19 06:59 18:59 06:59 Intake Total 1523.836 54.78 Output Total 3 Balance -3 1523.836 54.78 Weight 83.6 kg Intake: Intake, IV Titration 173.836 54.78 Amount Heparin Sod,Pork in 0.45% 173.836 54.78 NaCl 25,000 unit In 0.45 % NaCl 1 250ml.bag @ 12 UNITS/KG/HR 8.437 mls/hr IV .Q24H [facility] Rx#: [id number] Oral 1350 Output: Urine 3 Other: Voiding Method Toilet Toilet # Voids 1 3 1 - Exam PHYSICAL EXAMINATION: Patient is lying in the bed comfortably, no acute distress, awake alert and oriented.. HEENT: Normocephalic. Neck is supple. Pupils reactive. Nostrils clear. Oral cavity is moist. Ears reveal no drainage. Neck reveals no JVD, carotid bruits, or thyromegaly. CHEST EXAMINATION: Trachea is central. Symmetrical expansion. Lung romero clear to auscultation and percussion. CARDIAC: Normal S1, S2 with no gallops. No murmurs ABDOMEN: Soft. Bowel sounds normal. No organomegaly. No abdominal bruits. Extremities: reveal no edema. No clubbing or cyanosis Neurologically awake, alert, oriented x3 with well-coordinated movements. No focal deficits noted Skin: No rash or skin lesions. Psychiatric: Coperative. Nonsuicidal Musculoskeletal: No joint swelling or deformity. Normal range of motion. - Labs CBC & Chem 7: 06/23/19 03:26 06/23/19 03:17 Labs: Abnormal Lab Results - Last 24 Hours (Table) 06/23/19 06/23/19 06/23/19 Range/Units 03:17 03:17 03:17 APTT 31.2 H (22.0-30.0) sec Creatinine 0.48 L (0.52-1.04) mg/dL Glucose 146 H (74-99) mg/dL POC Glucose (mg/dL) (75-99) mg/dL Troponin I 0.062 H* (0.000-0.034) ng/mL 06/23/19 06/23/19 06/23/19 Range/Units 06:19 11:46 16:00 APTT 39.2 H (22.0-30.0) sec Creatinine (0.52-1.04) mg/dL Glucose (74-99) mg/dL POC Glucose (mg/dL) 166 H 176 H (75-99) mg/dL Troponin I (0.000-0.034) ng/mL 06/23/19 06/23/19 Range/Units 16:53 20:26 APTT (22.0-30.0) sec Creatinine (0.52-1.04) mg/dL Glucose (74-99) mg/dL POC Glucose (mg/dL) 172 H 164 H (75-99) mg/dL Troponin I (0.000-0.034) ng/mL Assessment and Plan Assessment: elevated troponin level. Likely due to SVT. Possible acute non-ST elevated MA chest pain SVT status post vagal manual. Converted to sinus rhythm now. Significant family history of coronary artery disease Diabetes type [id number] Hypertension Hyperlipidemia hypothyroidism History of uterine cancer plan: Patient will be continued ontelemetry monitoring. Started on heparin drip. Continue with serial EKG and troponins. Cardiology was consulted.continue with aspirin. Added metoprolol. Cardiology is planning for catheterization tomorrow. follow up closely and further recommendations based on the clinical course. Time with Patient: Greater than 30
[2019-06-24 05:25] VITALS: PULSE 74
[2019-06-24] MEDS ORDERED: ATORVASTATIN 80 MG TAB PO STA (05:59)
[2019-06-24] MEDS ORDERED: ASPIRIN 325 MG TAB PO STA (05:59)
[2019-06-24] MEDS: ASPIRIN 81 MG PO SCH (06:00)
[2019-06-24] MEDS: METOPROLOL TARTRATE 25 MG TAB PO SCH (06:09)
[2019-06-24] MEDS: LEVOTHYROXINE 50 MCG TAB PO SCH (06:09)
[2019-06-24] MEDS: LISINOPRIL 10 MG TAB PO SCH (06:09)
[2019-06-24 06:20] LABS: Glucose,Whole Blood 193 mg/dL (75-99)
[2019-06-24] MEDS: INSULIN ASPART (NovoLOG) 100 UNIT/ML VIAL SQ SCH ×3 (06:43→18:32)
[2019-06-24 06:58] LABS: Basophils # (A) 0.1 k/uL (0-0.2); Basophils % (A) 2 %; Eosinophils # (A) 0.4 k/uL (0-0.7); Eosinophils % (A) 4 %; HCT 43.2 % (34.0-46.0); HGB 13.4 gm/dL (11.4-16.0); Lymphocytes # (A) 4.2 k/uL (1.0-4.8); Lymphocytes % (A) 46 %; MCH 28.7 pg (25.0-35.0); MCHC 31.1 g/dL (31.0-37.0); MCV 92.1 fL (80.0-100.0); Monocytes # (A) 0.4 k/uL (0-1.0); Monocytes % (A) 4 %; Neutrophils # (A) 3.9 k/uL (1.3-7.7); Neutrophils % (A) 43 %; Platelet Count 316 k/uL (150-450); RBC 4.69 m/uL (3.80-5.40); RDW 13.1 % (11.5-15.5); WBC 9.2 k/uL (3.8-10.6)
[2019-06-24 07:12] LABS: African American GFR (CKD) >90 (>60 ml/min/1.73 sqM); Anion Gap 15 mmol/L; Blood Urea Nitrogen 11 mg/dL (7-17); Calcium 9.1 mg/dL (8.4-10.2); Carbon Dioxide 15 mmol/L (22-30); Chloride 107 mmol/L (98-107); Glucose 178 mg/dL (74-99); Non-African American GFR(CKD) >90 (>60 ml/min/1.73 sqM); Sodium 137 mmol/L (137-145)
[2019-06-24 07:13] LABS: Potassium 4.7 mmol/L (3.5-5.1)
--- NOTE | 2019-06-24 10:30 | ECHOF ---
Referral Reason:chest pain MEASUREMENTS -------- HEIGHT: 172.7 cm WEIGHT: 81.6 kg BP: 114/68 RVIDd: 2.8 cm (< 3.3) IVSd: 1.3 cm (0.6 - 1.1) LVIDd: 4.3 cm (3.9 - 5.3) LVPWd: 1.0 cm (0.6 - 1.1) IVSs: 1.7 cm LVIDs: 3.0 cm LVPWs: 1.4 cm LAESV Index (A-L): 23.58 ml/m Ao Diam: 3.0 cm (2.0 - 3.7) AV Cusp: 1.9 cm (1.5 - 2.6) LA Diam: 3.9 cm (2.7 - 3.8) MV EXCURSION: 13.536 mm (> 18.000) MV EF SLOPE: 58 mm/s (70 - 150) EPSS: 0.3 cm MV E Gerardo: 0.57 m/s MV DecT: 219 ms MV A Gerardo: 0.79 m/s MV E/A Ratio: 0.72 RAP: 5.00 mmHg RVSP: 27.32 mmHg FINDINGS -------- Sinus rhythm. This was a technically good study. The left ventricular size is normal. There is mild concentric left ventricular hypertrophy. Overa ll left ventricular systolic function is normal with, an EF between 55 - 60 %. The diastolic fillin g pattern is normal for the age of the patient 8.32. The right ventricle is normal in size. The left atrial size is normal. Normal LA size by volume 22+/-6 ml/m2. The right atrial size is normal. There is mild aortic valve sclerosis. There is no evidence of aortic regurgitation. Mild mitral annular calcification present. Mild mitral regurgitation is present. Mild tricuspid regurgitation present. Right ventricular systolic pressure is normal at < 35 mmHg. There is no evidence of pulmonary hypertension. There is no pulmonic regurgitation present. There is no pericardial effusion. CONCLUSIONS -------- 1. Sinus rhythm. 2. This was a technically good study. 3. The left ventricular size is normal. 4. There is mild concentric left ventricular hypertrophy. 5. Overall left ventricular systolic function is normal with, an EF between 55 - 60 %. 6. The diastolic filling pattern is normal for the age of the patient 8.32 7. The right ventricle is normal in size. 8. The left atrial size is normal. 9. Normal LA size by volume 22+/-6 ml/m2. 10. The right atrial size is normal. 11. There is mild aortic valve sclerosis. 12. Mild mitral annular calcification present. 13. Mild mitral regurgitation is present. 14. Mild tricuspid regurgitation present. 15. Right ventricular systolic pressure is normal at < 35 mmHg. 16. There is no evidence of pulmonary hypertension. 17. There is no pulmonic regurgitation present. 18. There is no pericardial effusion. DIE CUTTER OPERATOR: Maryjane Mendoza RDCS
[2019-06-24] MEDS ORDERED: VERAPAMIL 2.5 MG/ML 2 ML AMP ONE (10:43)
[2019-06-24] MEDS ORDERED: LIDOCAINE 1% INJ 10MG/ML (20 ML MDV) ONE (10:43)
[2019-06-24] MEDS ORDERED: SODIUM CHLORIDE 0.9% 1,000 ML IV ONE (11:00)
[2019-06-24] MEDS ORDERED: MIDAZOLAM 2 MG/2 ML VIAL IVP ONE ×2 (11:22→11:28)
[2019-06-24] MEDS ORDERED: LIDOCAINE 1% INJ 10MG/ML (20 ML MDV) SQ ONE (11:25)
[2019-06-24] MEDS ORDERED: VERAPAMIL SYRINGE (5 MG/10 ML) INTRAARTER ONE ×2 (11:27→11:40)
[2019-06-24] MEDS ORDERED: HEPARIN SODIUM 1,000 UN/ML (10ML VL) IV ONE ×2 (11:31)
[2019-06-24] MEDS ORDERED: IOPAMIDOL-370 100ML BTL INJ ONE (11:40)
[2019-06-24] MEDS ORDERED: SODIUM CHLORIDE 0.9% 1,000 ML IV SCH (12:00)
[2019-06-24 12:10] LABS: Glucose,Whole Blood 155 mg/dL (75-99)
--- NOTE | 2019-06-24 12:22 | CC ---
CARDIAC CATHETERIZATION REPORT DATE OF SERVICE: 06/24/2019 PROCEDURE: Left heart catheterization and coronary angiography. PERFORMED BY: Dr. Peggy Adkins. Moderate conscious sedation time was 18 minutes. Patient was administered Versed. All her oxygen saturation, VS and EKG were monitored closely. CLINICAL INFORMATION: Mrs. Leslie Ho is a 63-year-old lady admitted to the hospital with episode of chest pain strongly suggestive of angina. EN route with EMS, she had an episode of SVT at a heart rate of 150 beats per minute with symptoms of chest pain, had a vasovagal minute converted to sinus rhythm and did not have recurrence. Her troponin was very equivocal. She remained in sinus rhythm, but she has underlying diabetes, hypertension, hyperlipidemia, and has been on medications in this regard. She was advised coronary angiography after evaluation by Dr. Yecenia Cavanaugh. In view of her unstable angina and significant risk factors. Risks, benefits, options, rationale were explained. I proceeded to perform procedure this morning. PROCEDURE NOTE: Under local anesthesia and strict aseptic precautions, a 6-[place] introducer was placed in the right radial artery. Using a JL3.5 and JR4.0 catheters I performed coronary angiography. The same right Moises catheter was used to check LV pressures. LV gram was not performed. The sheath was taken out and TR band applied as per protocol. The saturation in the fingers in the right hand was 94%. LV-gram was not performed. Patient will be discharged later on today. The results of the cardiac cath, which revealed no significant CAD and normal filling pressures without gradient were explained to the patient and I also made a phone call to her daughter. CARDIAC CATHETERIZATION FINDINGS: The left ventricular end-diastolic pressure was 14 mmHg without any gradient across the aortic valve. CORONARY ANGIOGRAPHY FINDINGS: The right coronary artery large dominant vessel, has minor irregularities no significant disease, distally bifurcates into PDA and PLV, both of them have mild diffuse disease but no significant stenosis. Overall, the super dominant RCA had no significant disease. It is a large caliber, large distribution vessel. LEFT MAIN CORONARY ARTERY: It is a long patent, disease-free vessel that bifurcates into LAD and circumflex. Left main itself is free of significant disease. LEFT ANTERIOR DESCENDING CORONARY ARTERY: This is a good caliber vessel, extends along the anterior wall, gives off septal and diagonal branches, runs all the way to the apex, supplies a sizable amount of myocardium. In the midportion there is a 35% plaque at the origin of the diagonal branch. LAD is relatively disease free. LEFT POSTERIOR CIRCUMFLEX CORONARY ARTERY: Technically a nondominant vessel, gives off an obtuse marginal branch which is very high obtuse marginal, almost looks like a ramus, runs in the diagonal distribution, has minor irregularities, no significant disease. Then the circumflex runs in the AV groove and gives off a second obtuse marginal that is small in caliber and distribution. There is about a 35% plaque in the circumflex after the first obtuse marginal which is a larger vessel. The groove branch and the second OM are small in caliber and distribution without significant disease. Left ventriculogram was not performed. FINAL IMPRESSION: This patient has a right dominant system, 35% plaque in the mid LAD as well as in the mid circumflex after the origin of the first obtuse marginal branch. RCA is dominant and disease-free. Filling pressures are normal. No gradient across aortic valve. RECOMMENDATIONS: Findings were discussed with the patient and spoke to her daughter. Advised aggressive medical therapy with risk factor modification, but no intervention from a percutaneous standpoint. I will discharge the patient later on today if she remains stable. She is advised to drink plenty of water for the next 24 hours and I will see her in the office this Monday at 9:15 am. Discharge instructions were given. ISAI / MARIA ELENA: [id number] /
[2019-06-24 16:58] VITALS: BP 110/59; TEMP 97.9
[2019-06-24 17:51] LABS: Glucose,Whole Blood 180 mg/dL (75-99)
== END 2019-06-24 19:15 | disposition home or self-care (01) | DRG 281 ==
LOC: EC 13:37 → 3SCARD 14:59
PROVIDERS: ADMIT Internal Medicine; ATTEND Internal Medicine
PROC: B2111ZZ Fluoroscopy of Multiple Coronary Arteries using Low Osmolar Contrast (ICD-10-PCS; principal; 2019-06-24 11:00)
PROC: 4A023N7 Measurement of Cardiac Sampling and Pressure, Left Heart, Percutaneous Approach (ICD-10-PCS; principal; 2019-06-24 11:00)
DX: I21.4 Non-ST elevation (NSTEMI) myocardial infarction (principal); I47.1 Supraventricular tachycardia; E03.9 Hypothyroidism, unspecified; E11.9 Type 2 diabetes mellitus without complications; E78.5 Hyperlipidemia, unspecified; I10 Essential (primary) hypertension; Z79.4 Long term (current) use of insulin; Z79.82 Long term (current) use of aspirin; Z79.890 Hormone replacement therapy; Z79.899 Other long term (current) drug therapy; Z82.49 Family history of ischemic heart disease and other diseases of the circulatory system; Z83.3 Family history of diabetes mellitus; Z85.42 Personal history of malignant neoplasm of other parts of uterus; Z90.710 Acquired absence of both cervix and uterus
CPT/HCPCS: 36415; 71046; 80048; 80053; 83735; 84443; 84484; 85025; 85379; 85610; 85730; 93005; 93306; 93458; 99285

== ENCOUNTER → 2020-02-05 | Outpatient (CLI) | payer BC, OTHER ==
[2020-02-05 20:32] LABS: Chol/HDL Ratio 3.91; LDL Cholesterol,Calculated 96.2 mg/dL (0.0-131.0); VLDL Calculation 28.8 mg/dL (5.00-40.00)
== END | disposition home or self-care (01) ==
LOC: LABWHC1 10:35
PROVIDERS: ATTEND Internal Medicine Interventional Cardiology
DX: E78.5 Hyperlipidemia, unspecified (principal); E11.9 Type 2 diabetes mellitus without complications; I25.10 Atherosclerotic heart disease of native coronary artery without angina pectoris
CPT/HCPCS: 36415; 80061; 82550; 84450; 84460

== ENCOUNTER → 2020-06-12 | Outpatient (CLI) | payer BC, OTHER ==
--- NOTE | 2020-06-16 10:39 | MM ---
Reason for exam: screening (asymptomatic). Last mammogram was performed 1 year and 9 months ago. History: Patient is postmenopausal and has history of endometrial cancer at age 51. Family history of breast cancer in paternal cousin. Physical Findings: A clinical breast exam by your physician is recommended on an annual basis and results should be correlated with mammographic findings. MG Screening Mammo w CAD Bilateral CC and MLO view(s) were taken. Prior study comparison: January 01, 2016, bilateral MG screening mammo w CAD. There are scattered fibroglandular densities. Small benign oil cyst calcifications. Low axillary tail node on the left is unchanged. No significant changes when compared with prior studies. ASSESSMENT: Benign, BI-RAD 2 RECOMMENDATION: Routine screening mammogram of both breasts in 1 year.
== END ==
LOC: RADMAMWWP 11:04
PROVIDERS: ATTEND Internal Medicine
DX: Z12.31 Encounter for screening mammogram for malignant neoplasm of breast (principal); Z80.3 Family history of malignant neoplasm of breast; Z78.0 Asymptomatic menopausal state
CPT/HCPCS: 77067

== ENCOUNTER 2021-03-09 16:03 | Emergency (ER) | payer BC ==
[2021-03-09 17:59] VITALS: TEMP 98.4
[2021-03-09] MEDS ORDERED: IBUPROFEN 600 MG TAB PO STA (20:05)
[2021-03-09] MEDS ORDERED: ACETAMINOPHEN TAB 500 MG TAB PO STA (20:05)
--- NOTE | 2021-03-09 20:21 | ED ---
General Adult HPI - General Chief complaint: Upper Respiratory Infection Stated complaint: Covid+/antibodies Time Seen by Provider: 03/09/21 19:55 Source: patient, RN notes reviewed, old records reviewed Mode of arrival: ambulatory Limitations: no limitations - History of Present Illness Initial comments: This is a 65-year-old female presents emergency department stating that since Monday she's had achiness particularly in her shoulders and back. Patient states she's had a dry cough she has not appreciated any fever. Patient states she had a vaccine for COVID back in April for rate timeframe. Patient denies any nausea vomiting diarrhea. Patient denies any anterior chest pain. Patient states she is not short of breath. Patient states she went to her primary medical care doctor's and they told her she was positive for COVID and she did come to the emergency department for monoclonal antibodies. - Related Data Home Medications Medication Instructions Recorded Confirmed Aspirin EC [Ecotrin Low Dose] 81 mg PO DAILY 06/22/19 06/22/19 Dapagliflozin Propanediol [Farxiga] 5 mg PO DAILY 06/22/19 06/22/19 Krill Oil 500 mg PO DAILY 06/22/19 06/22/19 Levothyroxine Sodium [Synthroid] 50 mcg PO DAILY 06/22/19 06/22/19 SUMAtriptan SUCCINATE [Imitrex] 100 mg PO DAILY PRN 06/22/19 06/22/19 Simvastatin [Zocor] 40 mg PO HS 06/22/19 06/22/19 lisinopriL [Zestril] 10 mg PO DAILY 06/22/19 06/22/19 sitaGLIPtin PHOS/metFORMIN HCL 1 tab PO BID 06/22/19 06/22/19 [Janumet 50-1,000 mg Tablet] Previous Rx's Medication Instructions Recorded Metoprolol Tartrate [Lopressor] 25 mg PO DAILY #30 tab 06/24/19 Allergies Allergy/AdvReac Type Severity Reaction Status Date / Time No Known Allergies Allergy Verified 03/09/21 17:55 Review of Systems ROS Statement: Those systems with pertinent positive or pertinent negative responses have been documented in the HPI. ROS Other: All systems not noted in ROS Statement are negative. Past Medical History Past Medical History: Diabetes Mellitus, Hyperlipidemia, Hypertension, Thyroid Disorder History of Any Multi-Drug Resistant Organisms: None Reported Past Surgical History: Cholecystectomy, Hysterectomy Additional Past Surgical History / Comment(s): uterine cancer Past Psychological History: No Psychological Hx Reported Smoking Status: Never smoker Past Alcohol Use History: None Reported Past Drug Use History: None Reported - Past Family History Mother Family Medical History: Coronary Artery Disease (CAD), Deep Vein Thrombosis (DVT) General Exam - General Exam Comments Initial Comments: GENERAL: Patient is well-developed and well-nourished. Patient is nontoxic and well- hydrated and is in no acute distress. ENT: Neck is soft and supple. No significant lymphadenopathy is noted. Oropharynx is clear. Moist mucous membranes. Neck has full range of motion without eliciting any pain. EYES: The sclera were anicteric and conjunctiva were pink and moist. Extraocular movements were intact and pupils were equal round and reactive to light. Eyelids were unremarkable. PULMONARY: Unlabored respirations. Good breath sounds bilaterally. No audible rales rhonchi or wheezing was noted. CARDIOVASCULAR: There is a regular rate and rhythm without any murmurs gallops or rubs. ABDOMEN: Soft and nontender with normal bowel sounds. SKIN: Skin is clear with no lesions or rashes and otherwise unremarkable. NEUROLOGIC: Patient is alert and oriented x3. Cranial nerves II through XII are grossly intact. Motor and sensory are also intact. Normal speech, volume and content. Symmetrical smile. MUSCULOSKELETAL: Normal extremities with adequate strength and full range of motion. LYMPHATICS: No significant lymphadenopathy is noted PSYCHIATRIC: Normal psychiatric evaluation. Limitations: no limitations Course Vital Signs 03/09/21 17:56 Temperature 98.4 F Pulse Rate 83 Respiratory 20 Rate Blood Pressure 102/67 O2 Sat by Pulse 98 Oximetry Medical Decision Making - Medical Decision Making Patient received monoclonal antibodies. Patient denied any shortness of breath. - Lab Data Lab Results 03/09/21 Range/Units 18:00 Coronavirus (PCR) Detected A (Not Detectd) Disposition Clinical Impression: COVID-19 Disposition: HOME SELF-CARE Condition: Good Instructions (If sedation given, give patient instructions): Coronavirus Di sease 2019 (COVID-19) Is patient prescribed a controlled substance at d/c from ED?: No Referrals: Denia Monson MD [Primary Care Provider] - 1-2 days Time of Disposition: 20:23
[2021-03-09] MEDS ORDERED: SODIUM CHLORIDE 0.9% 50 ML IVPB ONE (21:30)
[2021-03-09] MEDS ORDERED: CASIRIVIMAB/IMDEVIMAB (EUA) 1,200 MG in SODIUM CHLORIDE 0.9% 100 ML IVPB ONE (21:30)
[2021-03-09 23:16] VITALS: BP 97/65; PULSE 77; RESP 18
== END 2021-03-09 23:35 | disposition home or self-care (01) ==
LOC: EC 16:03
DX: U07.1 COVID-19 (principal); E11.9 Type 2 diabetes mellitus without complications; I10 Essential (primary) hypertension; E78.5 Hyperlipidemia, unspecified; Z79.82 Long term (current) use of aspirin; Z79.890 Hormone replacement therapy; Z79.84 Long term (current) use of oral hypoglycemic drugs
CPT/HCPCS: 87635; 99283; Q0243

== ENCOUNTER → 2021-05-20 | Outpatient (CLI) | payer BC ==
[2021-05-20 18:33] LABS: ALT 27 U/L (8-44); AST 25 U/L (13-35); Chol/HDL Ratio 3.33 Ratio; Creatine Kinase 63 U/L (26-186); LDL Cholesterol,Calculated 89.1 mg/dL (0.0-131.0)
== END | disposition home or self-care (01) ==
LOC: LABWHC1 10:09
PROVIDERS: ATTEND Internal Medicine Interventional Cardiology
DX: E11.9 Type 2 diabetes mellitus without complications (principal); E78.5 Hyperlipidemia, unspecified
CPT/HCPCS: 36415; 80061; 82550; 84450; 84460

== ENCOUNTER → 2022-09-19 | Outpatient (CLI) | payer MEDICARE ==
--- NOTE | 2022-09-19 14:23 | BD ---
EXAMINATION TYPE: Axial Bone Density DATE OF EXAM: 09/19/2022 CLINICAL HISTORY: 66 years old Female. ICD-10 CODE: N95.8 MENOPAUSAL AND PERIMENOPAUSAL STATE Height: 5 ft 5 in Weight: 175 FRAX RISK QUESTIONS: Alcohol (3 or more units per day): no Family History (Parent hip fracture): no Glucocorticoids (More than 3mos): no (Ex: prednisone, prednisolone, methylprednisolone, dexamethasone, and hydrocortisone). History of Fracture in Adulthood: no Secondary Osteoporosis: 1. Type 1 Diabetes: type 2 2. Hyperthyroidism: no 3. Menopause before 45: no 4. Malnutrition: no 5. Chronic liver disease: no Rheumatoid Arthritis: no Current Tobacco Use: no RISK FACTORS HISTORY OF: Surgery to Spine/Hip(right/left)/Wrist (right/left): no Family History of Osteoporosis: no Active: yes Diet low in dairy products/other sources of calcium: no Postmenopausal woman: yes Take estrogen and/or progesterone medications: no Lost more than 2 inches in height since high school: yes Frequent falls: no Poor Health: good Hyperparathyroidism: no Adrenal Insufficiency: no MEDICATIONS: Thyroid Medications: yes Which medication: levothyroxine How Long: approx 6 years Additional Medications: levothyroxine, naproxen as needed ,metformin Additional History: EXAM MEASUREMENTS: Bone mineral densitometry was performed using the [employer] System. Bone mineral density as measured about the Lumbar spine is: ----- L1-L4(G/cm2): 0.927 T Score Values are as follows: ----- L1: -2.2 ----- L2: -2.1 ----- L3: -1.9 ----- L4: -2.4 ----- L1-L4: -2.1 Z Score Values are as follows: ----- L1: -1.1 ----- L2: -1.0 ----- L3: -0.8 ----- L4: -1.2 ----- L1-L4: -1.0 baseline Bone mineral density about the R hip (g/cm2): 1.000 Bone mineral density about the L hip (g/cm2): 0.990 T Score values are as follows: -----R Neck: -0.3 -----L Neck: -0.3 -----R Total: -0.3 -----L Total: -0.2 Z Score values are as follows: -----R Neck: 0.9 -----L Neck: 0.8 -----R Total: 0.6 -----L Total: 0.7 baseline FRAX%s: The graph provided illustrates a 3.9 % chance for a major osteoporotic fx and a 0.2 % chance for the hips probability for fx in 10 years time. IMPRESSION: Osteopenia (T Score between -2.5 and -1). There is slightly increased risk of fracture and the patient may be considered for treatment. Re-Screen 2-5 years. NOTE: T-SCORE=SD OF THE YOUNG ADULT MEAN.
--- NOTE | 2022-09-20 17:02 | MM ---
Reason for Exam: Screening (asymptomatic). Last mammogram was performed 2 year(s) and 3 month(s) ago. Patient History: Menarche at age 16. First Full-Term at age 26. Left ovary removed at age 51. Right ovary removed at age 51. Hysterectomy at age 51. Postmenopausal. Endometrial cancer, age 51. Paternal cousin had breast cancer. Risk Values: Estephania 5 year model risk: 1.7%. NCI Lifetime model risk: 6.3%. Prior Study Comparison: 01/01/2016 Bilateral Screening Mammogram, [facility]. 08/31/2018 Bilateral Screening Mammogram, [facility]. 06/12/2020 Bilateral Screening Mammogram, [facility]. Tissue Density: There are scattered fibroglandular densities. Findings: Analyzed By CAD. Chronic nodularity upper outer quadrant right breast. A few small benign with suspicious calcifications on both sides. No significant change from prior exams. There is no suspicious group of microcalcifications or new suspicious mass in either breast. Overall Assessment: Benign, BI-RAD 2 Management: Screening Mammogram of both breasts in 1 year. . Patient should continue monthly self-breast exams. A clinical breast exam by your physician is recommended on an annual basis. This exam should not preclude additional follow-up of suspicious palpable abnormalities. Note on Estephania scores and lifetime risk: 1. A Estephania score greater than 3% is considered moderate risk. If this is the case, consider specialist referral to assess eligibility for a risk reducing agent. 2. If overall lifetime risk for the development of breast cancer is 20% or higher, the patient may qualify for future screening with alternating mammogram and breast MRI. Electronically signed and approved by: Micki Shore M.D. Radiologist
== END | disposition home or self-care (01) ==
LOC: RADBDWWP 10:16
PROVIDERS: ATTEND Internal Medicine
DX: Z12.31 Encounter for screening mammogram for malignant neoplasm of breast (principal); M85.89 Other specified disorders of bone density and structure, multiple sites; Z78.0 Asymptomatic menopausal state; Z80.3 Family history of malignant neoplasm of breast
CPT/HCPCS: 77067; 77080

== ENCOUNTER 2022-12-09 08:52 | Day surgery (SDC) | payer MEDICARE ==
[2022-12-06 14:33] VITALS: BMI 26.4
[2022-12-09] MEDS ORDERED: LIDOCAINE 1% (10MG/ML) FOR IV START INTRADERMA PRN (09:21)
[2022-12-09] MEDS ORDERED: ONDANSETRON 4 MG/2 ML VIAL IVP PRN (09:21)
[2022-12-09] MEDS ORDERED: LACTATED RINGERS 1,000 ML IV SCH (09:21)
[2022-12-09 09:33] VITALS: RESP 16; TEMP 97.2
[2022-12-09] MEDS ORDERED: PROPOFOL 10 MG/ML 20 ML VIAL IV ONE (09:47)
--- NOTE | 2022-12-09 10:05 | P.PCN ---
Date of Procedure: 12/09/22 Procedure(s) Performed: BRIEF HISTORY: Patient is a 66-year-old, pleasant, white female scheduled for an upper endoscopy as a part of evaluation of epigastric pain, intermittent nausea vomiting for the last several months duration. Her symptoms are progressively getting worse the last 2 months. She has been on lansoprazole 30 mg daily and famotidine 40 mg daily with no help. She is hence scheduled for an upper endoscopy to evaluate further. PROCEDURE PERFORMED: Esophagogastroduodenoscopywith biopsy. PREOPERATIVE DIAGNOSIS: chronic epigastric pain/intermittent nausea vomiting a few months duration. IV sedation per anesthesia. PROCEDURE: After informed consent was obtained, the patient was brought into the endoscopy unit. IV sedation was administered by Anesthesia under continuous monitoring. Initially the Olympus GIF-140 video endoscope was inserted into the mouth. Esophagus intubated without any difficulty. It was gradually advanced into the stomach and duodenum and carefully examined. The bulb and the second part of the duodenum appeared normal. The scope at this time was withdrawn to the stomach, adequately insufflated with air, and upon careful examination, mucosa of the antrum,.had mild gastritis and biopsies were done from this area. There was large amount of retained solid food in the stomach suggestive of diabetic gastroparesis. No evidence of gastric outlet obstruction. Mucosa of the body, cardia and the fundus appeared normal. The scope was then withdrawn into the esophagus. The GE junction was located at 39 cm from the incisors. small hiatal hernia noted.The esophagus appeared normal. There were no erosions or ulcerations seen and the patient tolerated the procedure well. IMPRESSION: 1. Retained food in the stomach suggestive of diabetic gastroparesis. 2. Mild antral gastritis and a small hiatal hernia. RECOMMENDATIONS: The findings of this examination were discussed with the patient as well as her family. She was advised to continue her current medications. Small frequent meals and aggressive control of her blood sugars. If she still remains symptomatic she can be given a trial of Reglan.
[2022-12-09 10:41] LABS: Glucose,Whole Blood 82 mg/dL (70-110)
[2022-12-09 10:48] VITALS: BP 110/69; PULSE 70
== END 2022-12-09 11:07 | disposition home or self-care (01) ==
LOC: ORWHC2ENDO 08:52
PROVIDERS: ATTEND Internal Medicine Gastroenterology
DX: K29.50 Unspecified chronic gastritis without bleeding (principal); K31.A0 Gastric intestinal metaplasia, unspecified; K20.90 Esophagitis, unspecified without bleeding; K44.9 Diaphragmatic hernia without obstruction or gangrene; I10 Essential (primary) hypertension; E78.5 Hyperlipidemia, unspecified; E11.9 Type 2 diabetes mellitus without complications; E07.9 Disorder of thyroid, unspecified; Z79.890 Hormone replacement therapy; Z79.899 Other long term (current) drug therapy; Z79.84 Long term (current) use of oral hypoglycemic drugs; Z79.1 Long term (current) use of non-steroidal anti-inflammatories (NSAID); Z85.89 Personal history of malignant neoplasm of other organs and systems; Z90.710 Acquired absence of both cervix and uterus; Z98.890 Other specified postprocedural states
CPT/HCPCS: 43247; 88305; 43239; J2405; J2704

== ENCOUNTER → 2023-10-11 | Outpatient (CLI) | payer MEDICARE ==
--- NOTE | 2023-10-11 09:54 | US ---
EXAMINATION TYPE: US abdomen complete DATE OF EXAM: 10/11/2023 COMPARISON: CT 11/12/16 CLINICAL INDICATION: Female, 67 years old with history of K31.84 GASTROPARESIS; gastric issues TECHNIQUE: Multiple sonographic images of the abdomen are obtained. FINDINGS: EXAM MEASUREMENTS: Liver Length: 16.6 cm Gallbladder Wall: Surgically absent CBD: 0.4 cm Spleen: 8.2 cm Right Kidney: 12.2x5.1x4.9 cm Left Kidney: 11.6x5.3x5.3 cm [employer] NOTES: Pancreas: Tail obscured by overlying bowel gas Liver: enlarged, increased echogenicity and attenuation Gallbladder: Surgically absent CBD: wnl Spleen: wnl as visualized Right Kidney: small amount of fluid noted within renal pelvis Left Kidney: large 7.5x6.3x7.4cm cystic area noted on superior pole Upper IVC: wnl Abd Aorta: wnl exam limited by bowel gas and body habitus The liver is enlarged with diffusely increased echogenicity. No focal lesion identified. The intrahe patic portion of the IVC and proximal abdominal aorta are within normal limits. Gallbladder is surgic ally absent. Common bile duct is unremarkable. The visualized portions of the pancreas are homogenou s. The spleen is unremarkable. Kidneys are symmetric and free of hydronephrosis. Prominent right ex trarenal pelvis. No right renal lesions identified. Simple thin-walled cyst identified measuring from the superior pole of the left kidney. IMPRESSION: 1. Hepatomegaly with diffuse fatty infiltration. 2. Postcholecystectomy changes. 3. Left renal simple cyst.
== END | disposition home or self-care (01) ==
LOC: RADUSWWP 07:06
PROVIDERS: ATTEND Internal Medicine
DX: N28.1 Cyst of kidney, acquired (principal); K76.0 Fatty (change of) liver, not elsewhere classified; K31.84 Gastroparesis; R16.0 Hepatomegaly, not elsewhere classified; Z90.49 Acquired absence of other specified parts of digestive tract
CPT/HCPCS: 76700

== ENCOUNTER → 2024-02-23 | Outpatient (CLI) | payer MEDICARE ==
--- NOTE | 2024-02-24 16:54 | MM ---
Reason for Exam: Screening (asymptomatic). Last mammogram was performed 1 year(s) and 5 month(s) ago. Patient History: Menarche at age 16. First Full-Term at age 26. Left ovary removed at age 51. Right ovary removed at age 51. Hysterectomy at age 51. Postmenopausal. Endometrial cancer, age 51. Paternal cousin had breast cancer. Risk Values: Estephania 5 year model risk: 1.1%. NCI Lifetime model risk: 4.1%. Prior Study Comparison: 08/31/2018 Bilateral Screening Mammogram, [facility]. 06/12/2020 Bilateral Screening Mammogram, [facility]. 09/19/2022 Bilateral MG screening mammo w CAD, [facility]. Tissue Density: There are scattered areas of fibroglandular density. Findings: Analyzed By CAD. The pattern is symmetrical. No significant interval change is evident. Benign calcification present bilaterally. No suspicious groups of microcalcifications, spiculated or lobular masses, architectural distortion or other secondary signs of malignancy are mammographically apparent. Overall Assessment: Benign, BI-RAD 2 Management: Screening Mammogram of both breasts in 1 year. A negative mammogram report should not preclude additional follow up of suspicious palpable abnormalities. Patient should continue monthly self breast exam. A clinical breast exam by your physician is recommended on an annual basis and results should be correlated with mammographic findings. Note on Estephania scores and lifetime risk: 1. A Estephania score greater than 3% is considered moderate risk. If this is the case, consider specialist referral to assess eligibility for a risk reducing agent. 2. If overall lifetime risk for the development of breast cancer is 20% or higher, the patient may qualify for future screening with alternating mammogram and breast MRI. [facility], , 02/24/2024 4:51 PM. Electronically signed and approved by: Milad Melo D.O. Radiologis
== END | disposition home or self-care (01) ==
LOC: RADMAMWWP 15:32
PROVIDERS: ATTEND Internal Medicine
DX: Z12.31 Encounter for screening mammogram for malignant neoplasm of breast (principal); R92.323 Mammographic fibroglandular density, bilateral breasts; Z78.0 Asymptomatic menopausal state; Z80.3 Family history of malignant neoplasm of breast; Z90.722 Acquired absence of ovaries, bilateral
CPT/HCPCS: 77067